=== PATIENT | male | born 1945 | race Caucasian/White ===

== ENCOUNTER 2017-06-29 07:30 | Inpatient (IN) ==
[2017-07-20] MEDS ORDERED: FAMOTIDINE PB 20 MG/50 ML BAG IV ONE (06:00)
[2017-07-20] MEDS ORDERED: ONDANSETRON 4 MG/2 ML INJECTION IVP ONE (06:00)
[2017-07-20] MEDS ORDERED: METOCLOPRAMIDE 10mg/2ml INJECTION IVP ONE (06:00)
[2017-07-20] MEDS ORDERED: ACETAMINOPHEN 500 MG TABLET PO ONE (06:00)
[2017-07-20] MEDS ORDERED: LIDOCAINE 1% (10mg/ml) 2mL INJ PF SDV ID ONE (06:00)
--- OUTSIDE RECORDS SUMMARY | 2017-07-20 06:46 | External Medical Summary | Clinical Summary ---
:1945 Author Organization [facility] Address [address] [place] [address] Phone Care Team Providers Name Role Phone Unavailable Primary Care Provider Unavailable Source Comments Some departments are not documenting in the electronic medical record. If you do not see the information that you expected, contact Release of Information in the Health Information Management department at [phone] for further assistance in locating additional records.[facility] Allergies Active Allergy Reactions Severity Noted Date Comments Iodine ANAPHYLAXIS High 02/22/2009 Latex RASH Medium 02/22/2009 Current Medications Prescription Sig. Disp. Refills Start Date End Date Status carbamazepine (TEGRETOL) Take 1 Tab by mouth Active 200 mg tablet Three Times Daily. omeprazole DR,+, Take 1 Cap by mouth Active (PRILOSEC) 20 mg capsule Daily Before Breakfast. lisinopril-hydrochlorothi Take 1 Tab by mouth Active azide (ZESTORETIC) 20-25 Daily. mg per tablet sertraline (ZOLOFT) 100 Take 1 Tab by mouth Active mg tablet Every Morning. gabapentin (NEURONTIN) Take 1 Cap by mouth Active 300 mg capsule Three Times Daily. busPIRone (BUSPAR) 15 mg Take 1 Tab by mouth Active tablet Three Times Daily. nitroglycerin (NITRO-DUR) Apply 1 Patch to Active 0.1 mg/hr patch top of skin as directed Daily. Place patch on in morning, and remove at bedtime. nitroglycerin (NITRO-DUR) Apply 1 Patch to Active 0.2 mg/hr patch top of skin as directed. As directed for chest pain. Remove 0.1 mg/hr patch if 0.2 mg/hr patch is used. nitroglycerin (NITROSTAT) Place 1 Tab under Active 0.4 mg tablet tongue Every 5 Min as needed. For chest pain. May repeat up to 3 doses. ondansetron (ZOFRAN) 4 mg Take 1 Tab by mouth Active tablet Every 6 Hours as needed. For nausea. meclizine (ANTIVERT) 25 Take 1 Tab by mouth Active mg tablet Every 6 Hours as needed. For dizziness. predniSONE (DELTASONE) 20 Take 3 Tabs by Active mg tablet mouth Daily. For 2 days. (Dose=60 mg) aspirin 325 mg tablet Take 1 Tab by mouth 0 0 02/25/2009 Active Daily. Social History Tobacco Use Types Packs/Day Years Used Date Never Smoker Alcohol Use Drinks/Week oz/Week Comments No Sex Assigned at Date Recorded Not on file Last Filed Vital Signs Vital Sign Reading Time Taken Blood Pressure 148/86 02/25/2009 3:50 PM CDT Pulse 61 02/25/2009 3:50 PM CDT Temperature 37 C (98.6 F) 02/25/2009 2:48 PM CDT Respiratory Rate - - Oxygen Saturation 99% 02/25/2009 2:48 PM CDT Inhaled Oxygen Concentration - - Weight 106.6 kg (235 lb) 02/22/2009 7:27 PM CDT Height 175.3 cm (5' 9") 02/22/2009 7:27 PM CDT Body Mass Index 34.7 02/22/2009 7:27 PM CDT Plan of Treatment Health Maintenance Due Date Last Done Comments HEPATITIS C SCREENING 1945 PHYSICAL (COMPREHENSIVE) EXAM 1953 PERTUSSIS VACCINE 1957 TETANUS VACCINE 1963 COLORECTAL CANCER SCREENING 1996 SHINGLES VACCINE 2006 PREVNAR/PNEUMOVAX (#1) 2011 INFLUENZA VACCINE 02/02/2017
[2017-07-20 07:00] VITALS: BMI 34.7
[2017-07-20] MEDS ORDERED: CEFAZOLIN 1 G INJECTION IVP ONE (07:01)
[2017-07-20] MEDS ORDERED: VANCOMYCIN 1,000 MG INJECTION ONE (07:04)
[2017-07-20] MEDS: LR 1,000 ML IV SCH ×3 (07:57→10:20)
[2017-07-20] MEDS ORDERED: EPINEPHrine PF 0.25 MG, BUPIVACAINE 0.25% PF 30 ML, MORPHINE SULFATE 15 MG, KETOROLAC I... OPSITE ONE (08:00)
--- NOTE | 2017-07-20 08:16 | Anesthesia Preoperative Report ---
Anesthesia Preoperative Record - Date and Time Date: 07/20/17 Preoperative Diagnosis: Rt TKA M17.11 primary osteoarthritis right knee Proposed Procedure: right knee arthroplasty NPO Since Date: 07/19/17 NPO Since Time: 23:00 Allergies/Adverse Reactions: Allergies Allergy/AdvReac Type Severity Reaction Status Date / Time venom-honey bee Allergy Severe ANAPHYLACTIC Verified 07/20/17 07:19 SHOCK latex Allergy Mild RASH-STATES Verified 07/20/17 07:19 NO LONGER AN ISSUE Gadolinium-Containing Allergy Unknown BRAIN STEM Verified 07/20/17 07:19 Contrast Medi STROKE Iodinated Contrast- Oral and Allergy Unknown PATIENT Verified 07/20/17 07:19 IV Dye DENIES - Vital Signs Vital Signs: Temperature 98.4 F 07/20/17 06:59 Pulse Rate 71 07/20/17 07:37 Respiratory Rate 16 07/20/17 06:59 Blood Pressure 135/76 07/20/17 06:59 Pulse Oximetry 97 07/20/17 06:59 Height and Weight: Height 1.75 m Weight 106.5 kg Body Mass Index 34.7 - Medications Inpatient Medications: Current Medications Lactated Ringer's (Lactated Ringers) 1,000 mls @ 50 mls/hr IV .Q20H DAYANA Last Admin: 07/20/17 07:57 Dose: 50 mls/hr Isopropyl Alcohol (Nozin Nasal Swab) 1 each MEHREEN PREOP ONE Stop: 07/20/17 11:34 Last Admin: 07/20/17 07:58 Dose: 3 each Sodium Chloride (Iv Flush) 10 - 80 ml IV PRN PRN PRN Reason: Flushing Tranexamic Acid (Cyklokapron) 1,000 mg TOP INTRAOP ONE Stop: 07/20/17 11:34 Home Medications: Home Medications Medication Instructions Recorded Confirmed Type Neurontin (gabapentin) 300 mg 300 mg PO TID 90 Days #270 cap 05/25/17 07/20/17 History capsule Prilosec (Omeprazole) 20 mg 20 mg PO BID 90 Days #180 cap 05/25/17 07/20/17 History capsule,delayed release Zestoretic (lisinopril 20 1 tab PO DAILY tab 05/25/17 07/20/17 History mg-hydrochlorothiazide 12.5 mg) tablet Zoloft (sertraline) 100 mg tablet 150 mg PO DAILY tab 05/25/17 07/20/17 History buspirone 15 mg tablet 15 mg PO TID 90 Days #270 tab 05/25/17 07/20/17 History carbamazepine 100 mg chewable 100 mg PO TID 90 Days #270 tab 05/25/17 07/20/17 History tablet lisinopril 20 mg tablet 20 mg PO HS 90 Days tab 05/25/17 07/20/17 History - Medical History Respiratory: DENIES: Sleep Apnea Cardiovascular: Reports: Arrhythmia (bundle branch block for years, last cardilgy 12 yrs ago ), Hypertension, Other (heart cath in 1996, ) Gastrointestional: Reports: Gastroesophageal Reflux Disease Neuro/Musculoskeletal: Reports: Depression, Muscle Weakness (brace to right knee for comfort), Seizures (pseudoseizures ), Other (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 1992), Hernia Repair (Umb; Lap hiatal hernia repair; Robotic ventral w/ mesh 2016), Colonoscopy, EGD Surgery/Treatment: REPORT: Transurethral Resection (TURP X2) Musculoskeletal Surgery/Tx: Reports: Other (back surgery ) Anesthesia Reactions: None Hx Family Anesthesia Reaction: No - Social History Smoking Status: Never smoker Substance Use Type: does not use Alcohol Intake: never - Pertinent Findings Laboratory: CBC and BMP 07/20/17 07:09 EKG: Sinus Rhythm EKG Ectopy: Bundle Branch Block - Physical Exam Respiratory Exam: Present: lungs clear, bilateral breath sounds equal Cardiovascular Exam: Present: regular rate and rhythm, no murmur - Airway Assessment Mallampati Score: III TMD: 3 Fingerbreadths Neck Extension: fair Overall Assessment: may be difficult intubation - ASA ASA Score: 3 - Plan Anesthesia: General Inhalation Gases Regional/Trunk Block: Spinal - Discussion Discussion: Discussed risks/options/alternatives of anesthesia and questions answered. Patient consents. Nursing pain assessment noted. Attestation Statement: Prior to the delivery of any anesthetic medication, I examined the patient, developed the plan, obtained the patient's consent and discussed the risk and benefits of the procedure with the patient/guardian. - Additional Information Seen by Anesthesia: Yes
[2017-07-20] MEDS ORDERED: FentaNYL 100 MCG/2 ML INJECTION ONE (08:28)
[2017-07-20] MEDS ORDERED: KETAMINE 500 MG/10 ML INJECTION ONE (08:28)
[2017-07-20] MEDS ORDERED: MIDAZOLAM 2mg/2ml INJECTION ONE (08:29)
[2017-07-20] MEDS ORDERED: PROPOFOL 20 ML ONE (08:59)
[2017-07-20] MEDS ORDERED: ROPIVACAINE 0.5% (5mg/ml) 30ml INJ ONE (09:38)
[2017-07-20] MEDS ORDERED: VANCOMYCIN 1,000 MG INJECTION IAR ONE (09:40)
--- NOTE | 2017-07-20 10:32 | Operative Note ---
- Procedure Preoperative Diagnosis: Right knee primary degenerative joint disease Postoperative Diagnosis: Same as preoperative diagnosis. Surgeon: Silvina Pryor MD Cinder Dump Crane Operator: Merrick Choudhary Complications: None. Anesthesia: Spinal. Estimated Blood Loss: See Anesthesia Record. Fluids: Please see Anesthesia Record. Description of Procedure: Jose and his left knee were identified and marked in the preoperative holding area. He was brought back to the operating suite. Spinal anesthetic was administered and he was placed supine on the operating table. The left lower extremity was prepped and draped in my normal sterile fashion. Timeout was performed. The [employer] robotic arm was used during the surgery. He had a fixed varus deformity with no flexion contracture. A standard anterior midline incision followed by medial parapatellar arthrotomy was performed. Anterior fat pad and meniscus were removed. The patella was everted and a patellar osteotomy was performed leaving 13 mm of bone. Tibial and femoral arrays and checkpoints were placed both within the original incision. The bone was then registered with the [employer] robot. Osteophytes were removed and gaps were captured both 90 and 0 with correction. The [employer] robotic software was utilized to obtain 18 mm gaps in flexion and 70 mm gaps in extension. The [employer] robotic arm was then used to assist with the bone cuts. Posterior osteophytes and remaining meniscus were removed. Trial components were placed. We used a 6 femur and a 5 tibia with a 9 mm spacer and a 32 patella. She tracked well and was well balanced throughout range of motion. The tibia was stamped at the proper rotation. Trial components fit well and bone quality was adequate so we proceeded with press-fit components. Components were press-fit into place. A final spacer was also placed. The knee was ranged one more time to ensure good stability, balance and patellar tracking.1 g of TXA was allowed to sit in the wound for 5 minutes and then suctioned out. 1 g of vancomycin powder was then placed into the knee joint. The capsulotomy was then closed with #1 Vicryl. I then left my certified registered dental assistant to close the subcutaneous tissue with 2-0 Vicryl. Running 4-0 Monocryl will be used in the subcuticular layer. Dermabond will be used on the skin followed by sterile dressing. After drapes are removed patient will be taken to recovery room under the care of anesthesia.
[2017-07-20] MEDS ORDERED: TRANEXAMIC ACID 1,000mg/10ml INJECTION TOP ONE (11:33)
[2017-07-20] MEDS ORDERED: NOZIN NASAL SWAB NAS ONE ×2 (11:33→11:52)
[2017-07-20] MEDS ORDERED: SALINE FLUSH 10ml SYRINGE IV PRN (11:33)
--- NOTE | 2017-07-20 11:45 | XRay Report ---
Indication: postoperative image PROCEDURE: XR knee RT 2V: Encounter: Initial Comparison: June 16, 2017 Findings: Postoperative changes of right total knee replacement are seen. There is expected postoperative subcutaneous gas. No evidence of hardware failure or acute fracture. No retained radiopaque surgical instruments or sponges. Overlying material causing artifact. Impression: New right total knee prosthesis without evidence of immediate complication. .
[2017-07-20] MEDS ORDERED: DiphenhydrAMINE 50 MG/ML INJECTION IVP PRN (11:52)
[2017-07-20] MEDS ORDERED: LORazepam 1 MG TABLET PO PRN (11:52)
[2017-07-20] MEDS ORDERED: DiphenhydrAMINE 25 MG CAPSULE PO PRN (11:52)
--- NOTE | 2017-07-20 11:55 | Anesthesia Procedure Note ---
Peripheral Nerve Blockade - Procedure Physician: Rick Pryor MD Date: 07/20/17 Surgical Procedure: total knee arthroplasty Discussion: Discussed risks/options/alternatives of anesthesia and questions answered. Patient consents. Nursing pain assessment noted. Block Start: 10:59 Block Stop: 11:01 Indication: Post-Operative Pain Approach: Right Side Confirmed Position: Supine Patient: Consent, Risks/Benefits Discussed, Informed, Post Block Act. Discussed IV Sedation: No Initial Vital Signs: Temperature 98.4 F 07/20/17 06:59 Temperature Source Oral 07/20/17 06:59 Pulse Rate 74 07/20/17 06:59 Respiratory Rate 16 07/20/17 06:59 Blood Pressure 135/76 07/20/17 06:59 Blood Pressure Mean 95 07/20/17 06:59 Pulse Oximetry 97 07/20/17 06:59 Oxygen Delivery Method 07/20/17 06:59 Post Vital Signs: Temperature 98.9 F 07/20/17 11:28 Pulse Rate 69 07/20/17 11:25 Respiratory Rate 16 07/20/17 11:25 Blood Pressure 122/62 07/20/17 11:25 Pulse Oximetry 95 07/20/17 11:25 Initial Pain Pain Score: 0 Post Block Pain Score: 0 Prep: Chlorhexadine/ETOH Ultrasound Used?: Yes - Injectate Ropivacaine (%): 0.5 Ropivacaine (mL): 14 Injection: Injection made incrementally with constant monitoring and aspiration every ml
--- NOTE | 2017-07-20 11:56 | Anesthesia Postoperative Note ---
- Date and Time Date: 07/20/17 Time: 11:26 - Status Patient Participated in Evaluation: Patient Participated in Person Vital Signs: Temperature 98.9 F 07/20/17 11:28 Pulse Rate 69 07/20/17 11:25 Respiratory Rate 16 07/20/17 11:25 Blood Pressure 122/62 07/20/17 11:25 Pulse Oximetry 95 07/20/17 11:25 Respiratory Function: Airway Patent, Irregular Respirations EKG: Sinus Rhythm EKG Ectopy: Bundle Branch Block Mental Status: Alert and Oriented Pain Intensity: 0 Hydration: IV Infusing Complications During Recover: None Apparent - Follow-Up Instructions Instructions: Per Surgeon
[2017-07-20] MEDS: ACETAMINOPHEN 325 MG TABLET PO SCH ×3 (12:03→21:49)
[2017-07-20] MEDS: NS 1,000 ML IV SCH (12:05)
[2017-07-20] MEDS: --POM--GABAPENTIN 300 MG CAPSULE PO SCH ×2 (14:31→21:48)
[2017-07-20] MEDS: NOZIN NASAL SWAB NAS SCH ×2 (14:31→21:49)
[2017-07-20] MEDS: BUSPIRONE 15 MG PO SCH ×2 (14:31→21:48)
[2017-07-20] MEDS ORDERED: CARBAMAZEPINE 100 MG PO SCH (15:00)
[2017-07-20] MEDS: Oxycodone *IR* 5 MG TABLET PO PRN ×2 (16:56→21:50)
[2017-07-20] MEDS: CEFAZOLIN 2 G in NS 100 ML IV SCH (16:57)
[2017-07-20] MEDS: ONDANSETRON 4 MG/2 ML INJECTION IVP PRN (18:08)
[2017-07-20] MEDS: ASPIRIN *EC* 81 MG TABLET PO SCH (21:47)
[2017-07-20] MEDS: DOCUSATE SODIUM 100 MG CAPSULE PO SCH (21:48)
[2017-07-20] MEDS: --POM--LISINOPRIL 20 MG TABLET PO SCH (21:49)
[2017-07-20] MEDS: SENNOSIDES 8.6 MG TABLET PO SCH (21:49)
[2017-07-20] MEDS: --POM--OMEPRAZOLE 20 MG CAPSULE PO SCH (21:49)
[2017-07-21] MEDS: CEFAZOLIN 2 G in NS 100 ML IV SCH (00:36)
[2017-07-21] MEDS: NS 1,000 ML IV SCH ×2 (00:37→09:30)
[2017-07-21] MEDS: Oxycodone *IR* 5 MG TABLET PO PRN (02:53)
[2017-07-21] MEDS: NOZIN NASAL SWAB NAS SCH ×3 (06:11→21:00)
[2017-07-21] MEDS: ONDANSETRON 4 MG/2 ML INJECTION IVP PRN (08:01)
[2017-07-21] MEDS: ASPIRIN *EC* 81 MG TABLET PO SCH (08:07)
[2017-07-21] MEDS: ACETAMINOPHEN 325 MG TABLET PO SCH ×4 (08:07→20:58)
[2017-07-21] MEDS: LISINOPRIL PO SCH (08:07)
[2017-07-21] MEDS: --POM--GABAPENTIN 300 MG CAPSULE PO SCH ×3 (08:07→21:00)
[2017-07-21] MEDS: BUSPIRONE 15 MG PO SCH ×3 (08:07→21:00)
[2017-07-21] MEDS: HCTZ PO SCH (08:07)
[2017-07-21] MEDS: --POM--OMEPRAZOLE 20 MG CAPSULE PO SCH ×2 (08:07→20:59)
[2017-07-21] MEDS: DOCUSATE SODIUM 100 MG CAPSULE PO SCH ×2 (08:07→21:00)
[2017-07-21] MEDS: POLYETHYL GLYCOL 3350 17gm PACKET PO SCH (08:08)
[2017-07-21] MEDS: --POM--SERTRALINE 100 MG TABLET PO SCH (08:08)
--- NOTE | 2017-07-21 08:37 | Orthopedic Progress Note ---
Date: Date: 07/21/17 Time: 829 Subjective/Severity of Illness: Mr Garcia reports he had a rough night. He doesn't want to spend another night here. He had several interruptions during the night and doesn't like taking Oxycodone. Denies any CP, cough or SOA. He was placed on 1 liter of O2 last night when sats dipped to mid 80's. Denies any dyspnea this AM and is off O2 at this time. He lives at [place] in an independent apartment with his . She will not be home during the days and he is concerned about being alone. His renal function is good this AM but Dr Guillen removed him from all NSAID's and aspirin before surgery due to reduced renal function. Dr Guillen recommends Eliquis BID for post op DVT coverage in place of aspirin. I will hold ASA and give a dose of Lovenox this AM. Dr Pryor will call and discuss with Dr Guillen. It may be difficult finding a good pain medication for him as he doesn't tolerate the codeine products very well and can't take Ultram due to drug interactions. Orthopedic Objective PO Vital signs: Temperature 99.5 F 07/21/17 06:00 Pulse Rate 75 07/21/17 06:00 Respiratory Rate 16 07/21/17 06:00 Blood Pressure 129/58 07/21/17 06:00 Pulse Oximetry 96 07/21/17 06:00 Height and Weight: Height 5 ft 9 in Weight 234 lb 12.677 oz Body Mass Index 34.7 - Constitutional General Appearance: Present: alert, cooperative, no acute distress - Respiratory Exam Present: non-labored - Cardiovascular Exam Present: pedal pulses intact - Extremities Exam Extremities: Present: pulses intact. Absent: calf tenderness - Surgical Site Incision: Mepilex dressing intact, no drainage - Neurological Exam Present: no deficits - Psychiatric Exam Present: alert, normal affect - Labs Result Diagrams: 07/21/17 03:57 07/21/17 03:57 Abnormal lab results 07/21/17 07/21/17 Range/Units 03:57 03:57 Hgb 13.3 L D (13.5-17.5) GM/DL Hct 39.0 L D (41-53) % Glucose 130 H (75-110) MG/DL H & H 07/20/17 07/21/17 Range/Units 07:09 03:57 Hgb 16.0 13.3 L D (13.5-17.5) GM/DL Hct 46.4 39.0 L D (41-53) % Orthopedic Assessment and Plan (1) Primary osteoarthritis of right knee Status: Acute Hospital Course Summary Disclaimer: The visit summary below is not to be considered part of the above Progress Note.
[2017-07-21] MEDS ORDERED: ENOXAPARIN 40 MG/0.4 ML INJECTION SQ SCH (09:00)
[2017-07-21] MEDS ORDERED: SCOPOLAMINE 1mg/3 days PATCH TD ONE (10:19)
[2017-07-21] MEDS ORDERED: SENNOSIDES 8.6 MG TABLET PO PRN (10:45)
[2017-07-21] MEDS: SENNOSIDES 8.6 MG TABLET PO SCH (20:59)
[2017-07-21] MEDS: --POM--LISINOPRIL 20 MG TABLET PO SCH (21:00)
[2017-07-22] MEDS: NS 1,000 ML IV SCH ×2 (04:42→11:58)
[2017-07-22] MEDS: NOZIN NASAL SWAB NAS SCH (05:01)
--- NOTE | 2017-07-22 07:45 | Orthopedic Progress Note ---
Date: Date: 07/22/17 Time: 738 Subjective/Severity of Illness: Mr. Garcia states he feels "wonderful" this AM. He has not taken any Oxycodone since yesterday because it upset his stomach. He feels his pain is acceptable on Tylenol. has a bed for him. He is acceptably ambulatory. He has been placed on Eliqus 2.5mg PO BID as per Dr. Pryor and Dr. Guillen. He is on room air and has not had any further orthostatic events. He did have a fever of 100 over night. CBC has been requested this AM. He denies any SOB, Chest pain, sputum production, or feeling of URI. Orthopedic Objective PO Vital signs: Temperature 98.5 F 07/22/17 07:22 Pulse Rate 83 07/22/17 07:22 Respiratory Rate 18 07/22/17 07:22 Blood Pressure 118/59 07/22/17 07:22 Pulse Oximetry 91 07/22/17 07:22 Height and Weight: Height 5 ft 9 in Weight 247 lb 9.266 oz Body Mass Index 34.7 - Constitutional General Appearance: Present: alert, cooperative, no acute distress - Respiratory Exam Present: non-labored - Cardiovascular Exam Present: pedal pulses intact Capillary Refill: < 2-3 Seconds - Abdominal Exam Absent: tenderness - Extremities Exam Extremities: Present: pulses intact. Absent: calf tenderness - Surgical Site Incision: Mepilex dressing intact, no drainage - Neurological Exam Present: no deficits - Psychiatric Exam Present: alert, normal affect - Labs Result Diagrams: 07/22/17 03:55 07/22/17 03:55 Abnormal lab results 07/22/17 07/22/17 Range/Units 03:55 03:55 Hgb 11.1 L D (13.5-17.5) GM/DL Hct 33.4 L D (41-53) % Glucose 126 H (75-110) MG/DL Calcium 8.3 L (8.4-10.2) MG/DL Specimen Hemolysis 41 H (0-25) H & H 07/20/17 07/21/17 07/22/17 Range/Units 07:09 03:57 03:55 Hgb 16.0 13.3 L D 11.1 L D (13.5-17.5) GM/DL Hct 46.4 39.0 L D 33.4 L D (41-53) % Orthopedic Assessment and Plan (1) Primary osteoarthritis of right knee Status: Acute Assessment and Plan: Doing well. Anticipate discharge to today. CBC has been ordered to evaluate for fever; likely atelectasis Eliquis for DVT prevention F/U as scheduled with Dr. Pryor. - Anticoagulation Therapy Anticoagulation: other Hospital Course Summary Disclaimer: The visit summary below is not to be considered part of the above Progress Note.
--- NOTE | 2017-07-22 08:05 | Extended Care Facility Orders ---
Admission Orders Allergies/Adverse Reactions: Allergies venom-honey bee Allergy (Severe, Verified 07/20/17 07:19) ANAPHYLACTIC SHOCK latex Allergy (Mild, Verified 07/20/17 07:19) RASH-STATES NO LONGER AN ISSUE Gadolinium-Containing Contrast Medi Allergy (Unknown, Verified 07/20/17 07:19) BRAIN STEM STROKE Iodinated Contrast- Oral and IV Dye Allergy (Unknown, Verified 07/20/17 07:19) PATIENT DENIES No problem with Iodine Admitting Diagnosis: Rt TKA M17.11 Admitting Physician: Rick Pryor MD Attending Physician: Rick Pryor MD Anticiapted Length of Stay: 30 days or less Rehab Potential: good Rehab Prognosis: good Diet: 07/20/17 Lunch Regular Diet [DIET] Diet Modifications: Wound/Incision Care: Keep Mepilex dressing on. May shower as long as dressing is well attached. May use Facility Protocol or Standing Orders: Yes May have flu vaccine: Yes Evaluations/Treatment: PT, OT Half-Way Certification: I certify that SNF services are required to be given on an Inpatient basis because of the patients need for fci care on a continuing basis for the condition(s) for which he/she received inpatient hospital services prior to his/her transfer to the SNF. SNF inpatient care is necessary for the following reasons. Indication for Half-Way: Postop Assessment Care - Additional Information In Event of Arrest: Start CPR,call 911,send patient to the ER Resident is Aware of Diagnosis: Yes Referrals: Rick Pryor MD [Physician] - 08/11/17 1:15 pm
--- NOTE | 2017-07-22 08:22 | XRay Report ---
Indication: leukocytosis PROCEDURE: XR chest 1V: Encounter: Initial Comparison: June 24, 2017 Findings: The lungs are stable in appearance without new focal airspace consolidation. There is no pleural effusion or pneumothorax. The heart size, pulmonary vascularity and mediastinal contours are unchanged. IMPRESSION: Stable appearance of the chest without acute cardiopulmonary disease. .
[2017-07-22] MEDS: ACETAMINOPHEN 325 MG TABLET PO SCH ×2 (08:45→12:28)
[2017-07-22] MEDS: BUSPIRONE 15 MG PO SCH (08:47)
[2017-07-22] MEDS: DOCUSATE SODIUM 100 MG CAPSULE PO SCH (08:49)
[2017-07-22] MEDS: --POM--GABAPENTIN 300 MG CAPSULE PO SCH (08:50)
[2017-07-22] MEDS: --POM--OMEPRAZOLE 20 MG CAPSULE PO SCH (08:51)
[2017-07-22] MEDS: HCTZ PO SCH (08:51)
[2017-07-22] MEDS: LISINOPRIL PO SCH (08:51)
[2017-07-22] MEDS: POLYETHYL GLYCOL 3350 17gm PACKET PO SCH (08:52)
[2017-07-22] MEDS: --POM--SERTRALINE 100 MG TABLET PO SCH (08:53)
[2017-07-22] MEDS ORDERED: APIXABAN 2.5 MG TABLET PO SCH (09:00)
--- NOTE | 2017-07-22 09:17 | Discharge Summary ---
Orthopedic Discharge Info Date of admission: 07/20/17 06:40 Primary care physician: Isacc Guillen MD Attending Physician: Rick Pryor MD Consults: 07/20/17 06:59 Consult to Anesthesiology [CONS] Routine Reason For Exam: Preoperative Assessment 07/20/17 11:52 Case Management Consult [CONS] Routine Reason For Exam: Discharge Planning DME-Walker [CONS] Routine Height: 5 ft 9 in Weight: 234 lb 12.677 oz Total Joint Outpatient Therapy [CONS] Routine Comment: Remove dressing in 2 weeks - Discharge Diagnosis (1) Primary osteoarthritis of right knee Status: Acute - Procedures Procedures: Procedures Closed [endoscopic] biopsy of large intestine (02/22/12) Other endoscopy of small intestine (02/22/12) - Laboratory Result Diagrams: 07/22/17 03:55 07/22/17 03:55 Laboratory: Abnormal lab results 07/22/17 07/22/17 07/22/17 Range/Units 03:55 03:55 03:55 WBC 12.3 H (4.5-11.0) T/MM3 RBC 3.45 L (4.50-5.90) M/MM3 Hgb 11.1 L D 11.1 L (13.5-17.5) GM/DL Hct 33.4 L D 33.5 L (41-53) % Neutrophils % (Manual) 76.0 H (33-66) % Lymphocytes % (Manual) 11.0 L (23-45) % Neutrophils # (Manual) 9.3 H (1.8-7.7) T/MM3 Monocytes # (Manual) 1.1 H (0-0.8) T/MM3 Glucose 126 H (75-110) MG/DL Calcium 8.3 L (8.4-10.2) MG/DL Specimen Hemolysis 41 H (0-25) H & H 07/20/17 07/21/17 07/22/17 Range/Units 07:09 03:57 03:55 Hgb 16.0 13.3 L D 11.1 L D (13.5-17.5) GM/DL Hct 46.4 39.0 L D 33.4 L D (41-53) % 07/22/17 Range/Units 03:55 Hgb 11.1 L (13.5-17.5) GM/DL Hct 33.5 L (41-53) % Orthopedic Discharge HPI - HPI Comments This patient was admitted for elective surgical tx of end stage degenerative joint disease that failed to respond to conservative treatment. Further details of this is found in the admission H&P. Orthopedic Hospital Course Hospital course: 07/22/17 09:14 After appropriate preoperative clearance and signing of operative consent, the patient was given IV antibiotics, according to orthopedic protocol. The patient was taken to the operating room and underwent elective joint arthroplasty. Following surgery, antibiotics were discontinued less than 24 hours according to joint protocol. Appropriate anticoagulants were initiated and SCDs added for DVT prevention. The dressing was clean, dry, and intact. Pain control was obtained via multimodal approach. Bowel motivation addressed with scheduled and PRN medications. Early mobilization was initiated through PT services. Discharge arrangements made by a collaborative effort between the patient and Case Management. Post op day one the patient had a vaso vagal type event. He recovered and was able to mobilized sufficiently. Temp of 100 was noted post op day two. CXR was negative, white count was minimally elevated. Incentive Spirometry was pushed and the patient vitals returned to normal. He was asymptomatic on discharge. Follow-up is scheduled in 2-3 weeks. Discharge instructions given by orthopedic providers and nursing staff at discharge. Discharge condition was good. Care extended to > 2 midnight stays?: No - Postoperative Anemia patient received IVF, labs monitored daily - Leukocytosis due to surgical stress response Discharge Plan - Med Rec/Dispo Referrals/Follow Up: Rick Pryor MD [Physician] - 08/11/17 1:15 pm Desmonduvfelicita Instructions: [facility] [place] Ortho Postop Instructions Prescriptions: New Apixaban [Eliquis] 2.5 mg PO BID tab PEG 3350 17gm PACKET [Miralax] 17 gm PO DAILY packet Acetaminophen [Tylenol] 650 mg PO QID tab Continue Prilosec (Omeprazole) 20 mg capsule,delayed release 20 mg PO BID 90 Days # 180 cap carbamazepine 100 mg chewable tablet 100 mg PO TID 90 Days #270 tab Zoloft (sertraline) 100 mg tablet 150 mg PO DAILY tab lisinopril 20 mg tablet 20 mg PO HS 90 Days tab Zestoretic (lisinopril 20 mg-hydrochlorothiazide 12.5 mg) tablet 1 tab PO DAILY tab buspirone 15 mg tablet 15 mg PO TID 90 Days #270 tab ergocalciferol (vitamin D2) 50,000 unit capsule 50,000 unit PO DAILY #2 cap Neurontin (gabapentin) 300 mg capsule 300 mg PO TID 90 Days #270 cap - Disposition 03 To SN[facility] ([facility]) - Dismissal Complete Discharge Instructions are:: Complete
--- NOTE | 2017-07-22 11:06 | Extended Care Facility Orders ---
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 Admitting Physician: Rick Pryor MD Attending Physician: Rick Pryor MD Anticiapted Length of Stay: 30 days or less Rehab Potential: good Rehab Prognosis: good Diet: 07/20/17 Lunch Regular Diet [DIET] Diet Modifications: May use Facility Protocol or Standing Orders: Yes May have flu vaccine: Yes Evaluations/Treatment: PT, OT [facility] Certification: I certify that SNF services are required to be given on an Inpatient basis because of the patients need for fdc care on a continuing basis for the condition(s) for which he/she received inpatient hospital services prior to his/her transfer to the SNF. SNF inpatient care is necessary for the following reasons Indication for Correction: Postop Assessment Care - Additional Information In Event of Arrest: Start CPR,call 911,send patient to the ER Referrals: Rick Pryor MD [Physician] - 08/11/17 1:15 pm
[2017-07-22 11:37] VITALS: BP 127/59; PULSE 72; RESP 16; TEMP 99; O2SAT 93
[2017-07-22] MEDS ORDERED: BISACODYL 10 MG SUPPOSITORY RECTALLY SCH (20:00)
[2017-07-24] MEDS ORDERED: SCOPOLAMINE PATCH REMOVAL TD ONE (10:30)
== END 2017-07-22 12:50 | DRG 470 ==
LOC: NMC.PERIOP 07-20 06:40 → SRG 07-20 11:30
PROVIDERS: ADMIT Orthopaedic Surgery; ATTEND Orthopaedic Surgery